=== PATIENT | male | born 1985 | race Caucasian/White ===

== ENCOUNTER 2022-08-09 06:07 | Emergency (ER) | payer SELFPAY ==
[~2022-08-09] VITALS: Ht 177.8 cm; Wt 62.3 kg
--- NOTE | 2022-08-09 06:18 | NUR ---
Attempted to call patient into triage twice, in restroom.
[2022-08-09 06:44] VITALS: BP 122/89
== END 2022-08-09 09:38 | disposition left against medical advice (07) ==
LOC: ER 06:08
DX: R11.2 Nausea with vomiting, unspecified (principal); Z53.21 Procedure and treatment not carried out due to patient leaving prior to being seen by health care provider
CPT/HCPCS: 99281